=== PATIENT | male | born 1990 | race African-American/Black ===

== ENCOUNTER 2022-05-14 09:00 | Inpatient (IN) | payer OTHER, SELFPAY ==
[2022-05-14] VITALS (8 sets, daily range): BP systolic 114–126; BP diastolic 59–71; PULSE 65–78; RESP 16–18; TEMP 36.7–36.9; O2SAT 95–100; BMI 18.6
--- NOTE | ~2022-05-14 | XR_ITS ---
EXAMINATION: XR chest 1V portable DATE: 05/15/2022 05:52 INDICATION: Hyperlucency noted in the right lung and prior CT TECHNIQUE: frontal view of the chest was obtained. COMPARISON: CT abdomen and pelvis dated FINDINGS: Again seen is a localized region of increased lucency at the medial right lower lung zone with some c orresponding emphysematous changes on the prior CT. Lungs otherwise clear with no airspace opacities, pulmonary edema, pleural effusion or pneumothorax. The cardiomediastinal silhouette is normal. Visua lized bones and soft tissues are unremarkable. IMPRESSION: 1. Localized region of hyperlucency with emphysematous changes at the medial right lower lobe. Differ ential would include Swyer-Rahul syndrome related to chronic postinfectious obliterated of bronchioli tis, bronchial atresia or basilar predominant emphysema such as in the setting of alpha-1 antitrypsin deficiency. Reviewed, dictated and finalized at location A. IMPRESSION: 1. Localized region of hyperlucency with emphysematous changes at the medial ri ght lower lobe. Differential would include Swyer-Rahul syndrome related to brush painter kriss postinfectious obliterated of bronchiolitis, bronchial atresia or basilar p redominant emphysema such as in the setting of alpha-1 antitrypsin deficiency.
--- NOTE | ~2022-05-14 | CT_ITS ---
EXAMINATION: CT abdomen pelvis w con INDICATION: Nausea, vomiting, diarrhea TECHNIQUE: Computed tomographic images of the abdomen and pelvis were obtained after the administrati on of 100 cc of Omnipaque 300 intravenous contrast. The dose-length product (DLP) was 212.43 mGy-cm. Automated exposure control and iterative reconstruction technique were employed. COMPARISON: None available FINDINGS: There is hyperlucency in the medial aspect of the visualized right lower lobe. Stones are p resent in the nondistended gallbladder. Cysts of the liver measure up to 8 mm in the left hepatic lob e.. There is patchy perfusion of the spleen, likely related to history of sickle cell anemia. The byrnes creas and adrenal glands are normal. Cysts of the kidneys measure up to 10 mm on the left. No patholo gically enlarged abdominal or pelvic lymph nodes are identified. There is no free intraperitoneal gas or evidence of bowel obstruction. IMPRESSION: 1. Cholelithiasis without evidence of cholecystitis. 2. Patchy perfusion of the spleen, likely related to sickle cell anemia. Reviewed, dictated and finalized at location A.
[2022-05-14] MEDS: SODIUM CHLORIDE 0.9% IV 1,000 ML 999 ML IV CONT ×2 (09:47→11:49)
[2022-05-14] MEDS: ONDANSETRON INJ 4 MG/2 ML VIAL IV PUSH (09:49)
[2022-05-14 09:59] LABS: Basophils Percent Auto 0.5 % (0.2-1.2); Hematocrit 24.9 % (42.0-52.0); Immature Granulocyte Absolute 0.06 K/mm3 (0.00-0.031); Immature Granulocyte Percent A 0.7 % (0-0.5); Immature Platelet Fraction Pct 17.1 % (0.9-11.2); Lymphocytes Absolute Auto 2.55 K/mm3 (0.9-3.2); Lymphocytes Percent Auto 28.8 % (18.3-44.2); Mean Corpuscular HGB Conc 36.1 g/dl (32-36); Mean Corpuscular Hemoglobin 25.4 pg (26-34); Mean Corpuscular Volume 70.3 fl (80-100); Monocytes Absolute Auto 1.5 K/mm3 (0.1-0.6); Monocytes Percent Auto 16.6 % (2.6-8.5); Neutrophils Absolute Auto 4.7 K/mm3 (1.3-6.7); Neutrophils Percent Auto 53.4 % (45.5-73.1); Nucleated Red Blood Cells Absolute Auto 0.2 K/mm3 (0.0-0.012); Platelet Count Result 110 k/mm3 (150-375); Red Blood Count 3.54 M/mm3 (4.6-6.20); Red Cell Distribution Width 19.3 % (11.5-14.5); White Blood Count 8.8 K/mm3 (4.5-10.0)
--- NOTE | 2022-05-14 10:09 | ED.ABDPAIN ---
HPI - Abdominal Pain General Chief Complaint: Abdominal Pain <Aye Webb PA-C - Last Filed: 05/14/22 19:19> Stated Complaint: ABD <Aye Webb PA-C - Last Filed: 05/14/22 19:19> Time Seen by Provider: 05/14/22 09:02 <Aye Webb PA-C - Last Filed: 05/14/22 19:19> Source: patient <GRIFFIN Freitas Last Filed: 05/14/22 19:19> Mode of arrival: ambulatory <GRIFFIN Freitas Last Filed: 05/14/22 19:19> Limitations: no limitations <Aye Webb PA-C - Last Filed: 05/14/22 19:19> History of Present Illness HPI narrative: Patient is a 32-year-old male who presents ED with report of N/V/D. Patient reports having symptoms for the last 4 days. He reports symptoms began more with nausea and vomiting, but now he is mostly just having nausea with dry heaving. He has had several episodes of diarrhea per day. No blood in the stool or vomit. He reports having diffuse crampy abdominal pain with vomiting, but denies any pain currently. He has not tried anything for symptoms. He has been able to keep down some water, but has not ate much over the last 4 days. Denies any fever, chills, diaphoresis, urinary symptoms, chest pain, difficulty breathing, recent cough or cold symptoms. Patient has a Hx of sickle cell anemia. Does not currently take any medications for this. Denies symptoms feeling like pain crisis. Denies joint or extremity pain currently. Last crisis few months ago. Cardiovascular Or Nurse is Dr. Muñoz w/ [facility]. <GRIFFIN Freitas Last Filed: 05/14/22 19:19> Related Data Home Medications: Home Medications Medication Instructions Recorded Confirmed ketorolac 10 mg tablet 10 mg PO Q6H PRN Pain 05/14/22 05/14/22 oxycodone 5 mg tablet 5 mg PO Q6H PRN Pain 05/14/22 05/14/22 <Aye Webb PA-C - Last Filed: 05/14/22 19:19> Allergies/Adverse Reactions: Allergies Allergy/AdvReac Type Severity Reaction Status Date / Time hydromorphone [From Dilaudid] Allergy Unknown Hives Verified 05/15/22 12:05 carrots Allergy Unknown Swelling Uncoded 05/15/22 12:06 <Aye Webb PA-C - Last Filed: 05/14/22 19:19> Review of Systems Review of Systems: CONSTITUTIONAL: Denies fever, chills, or sweats. ENT: Denies rhinorrhea, congestion, sore throat. CARDIOVASCULAR: Denies chest pain. RESPIRATORY: Denies cough or dyspnea. GASTROINTESTINAL: Reports crampy abdominal pain, nausea, vomiting, dry heaving, and diarrhea. Denies hematemesis or rectal bleeding. GENITOURINARY: Denies dysuria or hematuria. MUSCULOSKELETAL: Denies back pain, joint pain, myalgias. NEUROLOGIC: Denies headache, numbness, tingling, or weakness. <Aye Webb PA-C - Last Filed: 05/14/22 19:19> All systems reviewed & are unremarkable except as noted in HPI and below <Aye Webb PA-C - Last Filed: 05/14/22 19:19> [facility] Past Medical History Medical History: Medical History (Updated 05/15/22 @ 07:21 by NALINI Rothman) Cardiac murmur Since childhood, benign per patient report. Sickle cell disease Patient has history of acute chest syndrome. <Aye Webb PA-C - Last Filed: 05/14/22 19:19> Surgical History Surgical History: Surgical History (Updated 05/14/22 @ 23:25 by Guerline Cisneros PA-C) No history of previous surgery <Aye Webb PA-C - Last Filed: 05/14/22 19:19> Family History Family History: Family History (Updated 05/14/22 @ 23:25 by Guerline Cisneros PA-C) Other Sickle cell trait <Aye Webb PA-C - Last Filed: 05/14/22 19:19> Social History Social History: Social History (Updated 05/14/22 @ 23:27 by Guerline Cisneros PA-C) Social History: Surrogate decision maker: Josephine Rosa, mother. Code status: Full code. Smoking status: Never smoker Alcohol intake: never Substance use: former Substance use type: does not use and marijuana Additional living arrangements comments: The patient lives with
[2022-05-14 10:16] LABS: Anisocytosis 1+ (NORMAL); Hypochromasia 2+ (NORMAL); Platelet Estimate Decreased (Adequate)
[2022-05-14 10:17] LABS: Ovalocytes 2+ (NORMAL); Sickle Cells 2+ (NORMAL); Target Cells 2+ (NORMAL); Tear Drop Cells 1+ (NORMAL)
[2022-05-14 10:18] LABS: Acanthocytes 1+ (NORMAL); Schistocytes 1+ (NORMAL)
[2022-05-14 10:22] LABS: Albumin Level 4.2 g/dL (3.5-5.1); Alkaline Phosphatase 64 U/L (38-126); Anion Gap 7 mmol/L (8-16); Bilirubin,Total 3.3 mg/dL (0.2-1.3); Blood Urea Nitrogen 16 mg/dL (9-20); Calcium 8.2 mg/dL (8.4-10.2); Carbon Dioxide 23 mmol/L (22-30); Chloride 105 mmol/L (98-107); Estimated CRCL calculation 88 ml/min; Estimated Glomerular Filt Rate > 60; Glucose 109 mg/dL (65-110); Lipase 187 U/L (23-300); Potassium 3.6 mmol/L (3.4-5.0); Sodium 135 mmol/L (137-145)
[2022-05-14 10:38] LABS: Alanine Aminotransferase 2238 U/L (6-50); Aspartate Amino Transferase 3407 U/L (17-59)
[2022-05-14 10:47] LABS: Appearance Urine Clear (Clear); Bilirubin Urine 1+ (Negative); Blood Urine 2+ (Negative); Glucose Urine UA Negative (Negative); Ketones Urine Negative (Negative); Leukocyte Esterase Ur Negative LEU/UL (Negative); Nitrate Urine Negative (Negative); Protein Urine 2+ mg/dL (Negative); Specific Grav Ur 1.015 (1.001-1.035)
[2022-05-14 10:52] LABS: Bacteria Urine Trace /hpf; RBC Urine 0-2 /hpf (0-2); WBC Urine 0-3 /hpf
[2022-05-14 11:05] LABS: Add Urine Microscopic? YES; Color Urine Dark Yellow (Yellow)
[2022-05-14 11:09] LABS: Immature Reticulocyte Fraction 10.6 % (3.0-15.9); Reticulocyte Hemoglobin Conten 23.7 pg (28.2-35.7); Reticulocytes Absolute 0.05 B/L (32.2-175.7)
[2022-05-14 12:07] LABS: Hepatitis B Surface Antigen Negative (Negative)
[2022-05-14 12:09] LABS: Lactate Dehydrogenase > 10000 U/L (313-618)
[2022-05-14 12:12] LABS: HAV RESULT Negative (Negative); Hepatitis B Core IgM Result Negative (Negative)
[2022-05-14 12:24] LABS: Hepatitis C Virus Antibody Negative (Negative)
[2022-05-14] MEDS: METOCLOPRAMIDE HCL INJ 10 MG/2 ML VIAL IV PUSH (12:44)
[2022-05-14 13:43] LABS: Acetaminophen < 10 ug/mL (10-30)
[2022-05-14 14:29] LABS: INR 1.3; Prothrombin Time 15.5 Seconds (11.1-14.7)
[2022-05-14 14:30] LABS: Partial Thromboplastin Time 42.5 SECONDS (22.3-36.8)
--- NOTE | 2022-05-14 14:37 | ECG_ITS ---
Measurements Intervals [place] Rate: 71 P: 71 WI: 161 QRS: 60 QRSD: 87 T: 0 QT: 400 QTc: 436 Interpretive Statements SINUS RHYTHM VOLTAGE CRITERIA FOR LVH WITH SECONDARY REPOLARIZATION ABNORMALITY ABNORMAL ECG NO PREVIOUS ECG AVAILABLE FOR COMPARISON Electronically Signed On 05-15-2022 7:15:15 CDT by Charles Clark M.D.
[2022-05-14 15:29] LABS: Troponin I 0.033 ng/mL (0.000-0.034)
[2022-05-14] MEDS: SODIUM CHLORIDE 0.9% IV 1,000 ML 150 ML IV CONT ×2 (16:18→23:10)
--- NOTE | 2022-05-14 17:05 | ADMGEN ---
This patient, Shawn Bower, was admitted to Medical Room 244-. Patient/family oriented to hospital policies and general routines including ID bracelet, bed and alarms, visiting hours, pain management, procedures, bathroom and other care routines, personal items, smoking policy, room service/diet, and visiting hours. Information on how to activate the Rapid Response Team has been discussed. Patient/Family are encouraged to report perceived risks to care and to ask questions if they do not understand what they are told or what they should do.
--- NOTE | 2022-05-14 17:30 | PM.IMHP ---
H&P: HPI History of Present Illness Date/Time: 05/14/22 17:30 Chief Complaint: Nausea, vomiting, diarrhea. Narrative: This is a very pleasant 32-year-old male with sickle cell disease who presented to the emergency department for evaluation of nausea, vomiting, and diarrhea. He has not felt well for approximately 4 days with nausea, vomiting, dry heaves, and brown-yellow watery diarrhea. He also reports mild abdominal discomfort which he believes is muscle aches from vomiting and dry heaving. Several days prior to the onset of these symptoms he had a dry cough and hiccups although those symptoms have resolved. With further questioning his mother was in [place] last week and when she returned home she had cold symptoms to include sniffles and a mild sore throat. Her symptoms were mild and they to have resolved and she was never tested for influenza or COVID. Vital signs were stable on arrival to the ER. Pertinent labs include a stable hemoglobin and hematocrit, normal percent retic, mild elevation in bilirubin, and markedly elevated AST, ALT, and LDH. CT of the abdomen and pelvis showed cholelithiasis without evidence of cholecystitis as well as patchy perfusion of the spleen, likely related to sickle cell anemia. The physician visual merchandising assistant care for the patient department spoke with the physician on-call (Dr. 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 Dr. Sky (gastroenterology) was contacted and he agrees to see the patient in consultation. At the time my evaluation he is feeling a lot better after receiving IV fluids and antiemetics in the ER. He has no significant abdominal discomfort at this time and he has had no episodes of vomiting or dry heaves since admission. He has had 1 loose stool, however. He denies fever, chills, sweats, sinus congestion, sore throat, cough, chest pain, shortness breast, rash, pruritus, hematemesis, melena hematochezia, dysuria, hematuria, and joint pain. He denies recent travel, antibiotic use, and acetaminophen use. He has not had any recent tattoos, needle exposures, or hepatitis exposure to his knowledge. Review of Systems Review of Systems: Twelve systems were reviewed and are negative except for as per HPI. [facility] Past Medical History Medical History (Updated 05/14/22 @ 23:40 by Guerline Cisneros PA-C) Cardiac murmur Since childhood, benign per patient report. Sickle cell disease Patient has history of acute chest syndrome. Surgical History Surgical History (Updated 05/14/22 @ 23:25 by Guerline Cisneros PA-C) No history of previous surgery Family History Family History (Updated 05/14/22 @ 23:25 by Guerline Cisneros PA-C) Other Sickle cell trait Social History Social History (Updated 05/14/22 @ 23:27 by Guerline Cisneros PA-C) Social History: Surrogate decision maker: Josephine Rosa, mother. Code status: Full code. Smoking status: Never smoker Alcohol intake: never Substance use: former Substance use type: does not use and marijuana Additional living arrangements comments: The patient lives with his mother. Spiritual care concerns: No Meds Home Medications and Allergies Home Medications Medication Instructions Recorded Confirmed Type ketorolac 10 mg tablet 10 mg PO Q6H PRN Pain 05/14/22 05/14/22 History oxycodone 5 mg tablet 5 mg PO Q6H PRN Pain 05/14/22 05/14/22 History Allergies Allergy/AdvReac Type Severity Reaction Status Date / Time hydromorphone [From Dilaudid] Allergy Hives Verified 05/14/22 18:47 carrots Allergy Swelling Uncoded 05/14/22 17:26 Vital Signs Vital Signs - 24 hr 05/14/22 09:06 05/14/22 10:02 05/14/22 12:49 Temperature 98.1 F Pulse Rate 74 78 76 Respiratory Rate 18 18 18 Blood Pressure 126/71 114/67 119/60 Pulse Oximetry 100 95 100 Oxygen Delivery Room Air Exam Narrative: General: Well-developed, thin male
[2022-05-15] VITALS: PULSE 75
[2022-05-15 00:24] LABS: Magnesium 2.3 mg/dL (1.6-2.3); Phosphorus 2.2 mg/dL (2.5-4.5); Uric Acid 3.7 mg/dL (3.5-8.5)
[2022-05-15 00:31] LABS: Albumin Level 3.4 g/dL (3.5-5.1); Alkaline Phosphatase 56 U/L (38-126); Anion Gap 5 mmol/L (8-16); Bilirubin,Total 2.8 mg/dL (0.2-1.3); Blood Urea Nitrogen 9 mg/dL (9-20); CRP 2.2 mg/dL (<1.0); Calcium 7.4 mg/dL (8.4-10.2); Carbon Dioxide 22 mmol/L (22-30); Chloride 110 mmol/L (98-107); Creatine Kinase 469 U/L (55-170); Estimated CRCL calculation 115 ml/min; Estimated Glomerular Filt Rate > 60; Glucose 97 mg/dL (65-110); Potassium 3.3 mmol/L (3.4-5.0); Sodium 137 mmol/L (137-145)
[2022-05-15 00:55] LABS: Alanine Aminotransferase 1622 U/L (6-50); Aspartate Amino Transferase 2001 U/L (17-59); Lactate Dehydrogenase 5220 U/L (313-618)
[2022-05-15 01:10] LABS: Monoscreen Negative (Negative); Negative Monotest Control Negative (Negative); Positive Monotest Control Positive (Positive)
[2022-05-15 01:27] LABS: SARS-CoV-2 RNA PCR Positive
[2022-05-15 01:40] LABS: HAV RESULT Negative (Negative)
[2022-05-15] MEDS: DEXTROSE 5%/0.45% SOD CHL 1,000 ML 75 ML IV CONT (03:12)
[2022-05-15 04:00] VITALS: PULSE 78
[2022-05-15 05:08] LABS: Basophils Absolute Auto 0.1 K/mm3 (0.0-0.1); Basophils Percent Auto 0.8 % (0.2-1.2); Eosinophils Percent Auto 0.4 % (0-4.4); Hematocrit 21.9 % (42.0-52.0); Immature Granulocyte Absolute 0.08 K/mm3 (0.00-0.031); Immature Platelet Fraction Pct 12.2 % (0.9-11.2); Immature Reticulocyte Fraction 7.8 % (3.0-15.9); Lymphocytes Percent Auto 45.3 % (18.3-44.2); Mean Corpuscular HGB Conc 36.5 g/dl (32-36); Mean Corpuscular Hemoglobin 25.5 pg (26-34); Mean Corpuscular Volume 69.7 fl (80-100); Monocytes Absolute Auto 1.1 K/mm3 (0.1-0.6); Monocytes Percent Auto 12.6 % (2.6-8.5); Neutrophils Absolute Auto 3.3 K/mm3 (1.3-6.7); Neutrophils Percent Auto 39.9 % (45.5-73.1); Nucleated Red Blood Cells Absolute Auto 0.1 K/mm3 (0.0-0.012); Nucleated Red Blood Cells Perc 0.6 % (0.0-0.2); Platelet Count Result 128 k/mm3 (150-375); Red Blood Count 3.14 M/mm3 (4.6-6.20); Red Cell Distribution Width 20.3 % (11.5-14.5); Reticulocyte Hemoglobin Conten 25.8 pg (28.2-35.7); Reticulocyte Percent 2.57 % (0.7-4.3); Reticulocytes Absolute 0.08 B/L (32.2-175.7); White Blood Count 8.4 K/mm3 (4.5-10.0)
[2022-05-15 05:16] LABS: Ammonia 23 umol/L (9-30)
[2022-05-15 05:17] LABS: Free T4 Free Thyroxine Reflex 0.84 ng/dL (0.78-2.19)
[2022-05-15 05:28] LABS: Albumin Level 3.4 g/dL (3.5-5.1); Alkaline Phosphatase 47 U/L (38-126); Anion Gap 4 mmol/L (8-16); Bilirubin,Total 2.7 mg/dL (0.2-1.3); Blood Urea Nitrogen 7 mg/dL (9-20); Calcium 7.5 mg/dL (8.4-10.2); Carbon Dioxide 22 mmol/L (22-30); Chloride 110 mmol/L (98-107); Creatine Kinase 484 U/L (55-170); Estimated CRCL calculation 115 ml/min; Estimated Glomerular Filt Rate > 60; Glucose 98 mg/dL (65-110); Magnesium 2.3 mg/dL (1.6-2.3); Phosphorus 2.4 mg/dL (2.5-4.5); Potassium 3.7 mmol/L (3.4-5.0); Sodium 136 mmol/L (137-145)
[2022-05-15 05:29] LABS: Anisocytosis 1+ (NORMAL); Macrocytosis 1+ (NORMAL); Platelet Estimate Adequate (Adequate); Poikilocytosis 1+ (NORMAL); Sickle Cells 1+ (NORMAL)
[2022-05-15 05:30] LABS: Hypochromasia 1+ (NORMAL); Target Cells 1+ (NORMAL)
[2022-05-15 05:36] VITALS: BP 114/55; PULSE 75; RESP 18; TEMP 36.4; O2SAT 99
[2022-05-15 06:24] LABS: Alanine Aminotransferase 1527 U/L (6-50); Aspartate Amino Transferase 1699 U/L (17-59); Lactate Dehydrogenase 4403 U/L (313-618)
[2022-05-15 08:00] VITALS: PULSE 67
[2022-05-15 08:40] LABS: Ferritin > 2000.00 ng/mL (17.9-464)
--- NOTE | 2022-05-15 10:15 | PM.IMPN ---
Progress Note: A&P Assessment and Plan (1) COVID-19: Code(s): U07.1 - COVID-19 Status: Acute Assessment and Plan: Test positive for COVID Was around his mother that was ill after vacation Could be contributing to his liver failure Trend labs Supportive care (2) Transaminitis: Code(s): R74.01 - Elevation of levels of liver transaminase levels Status: Acute Assessment and Plan: Liver enzymes AST/ALT 1699/1527 LDH 4403 Alk phos 47 Trend labs Hep panel negative Could be secondary to Covid infection GI on board Consider MRCP (3) Sickle cell disease: Code(s): D57.1 - Sickle-cell disease without crisis Status: Acute Assessment and Plan: H/H stable at 8.0/21.9 Retic counts: absolute 0.08, % Retic 2.57, Immature fraction 7.8, Retic Hgb content 25.8 Trend H/H Get anemia labs in the am Transfuse as indicated Supplement as indicated (4) Nausea, vomiting, and diarrhea: Code(s): R11.2 - Nausea with vomiting, unspecified; R19.7 - Diarrhea, unspecified Status: Acute Assessment and Plan: Initial presentation over the last 4 days Bilirubin and liver enzymes are elevated Abd/Pel Ct shows cholelithiasis without evidence of cholecystitis Tested positive for COVID Hx of sickle cell anemia GI consulted Consider MRCP Zofran ordered (5) Rhabdomyolysis: Code(s): M62.82 - Rhabdomyolysis Status: Acute Assessment and Plan: CK elevated 484 IV fluids Trend CK Appears to be going up slightly from admission Time Spent With Patient Time with patient: Greater than 35 minutes Subjective Date/time seen: 05/15/22 1015 Interval history: 05/15/22 1015 Patient is anxious and ready to go home. Explained to patient that is not time do the patient has elevated AST ALT. Patient's main concern is that he is hungry and wants to eat something. Patient also has an elevated and is rising CK. He denies any chest pain, shortness of breath, nausea, vomiting, diarrhea constipation or fatigue. Patient did state that he still have a little bit abdominal pain but it does seem controlled at this time. Urine does look your dark at this time. I did reiterate to this patient again that he is not safe for discharge as his liver enzymes are elevated and his CK is also elevated. 05/14/22? 17:30 This is a very pleasant 32-year-old male with sickle cell disease who presented to the emergency department for evaluation of nausea, vomiting, and diarrhea. He has not felt well for approximately 4 days with nausea, vomiting, dry heaves, and brown-yellow watery diarrhea. He also reports mild abdominal discomfort which he believes is muscle aches from vomiting and dry heaving. Several days prior to the onset of these symptoms he had a dry cough and hiccups although those symptoms have resolved. With further questioning his mother was in [place] last week and when she returned home she had cold symptoms to include sniffles and a mild sore throat. Her symptoms were mild and they to have resolved and she was never tested for influenza or COVID. Vital signs were stable on arrival to the ER. Pertinent labs include a stable hemoglobin and hematocrit, normal percent retic, mild elevation in bilirubin, and markedly elevated AST, ALT, and LDH. CT of the abdomen and pelvis showed cholelithiasis without evidence of cholecystitis as well as patchy perfusion of the spleen, likely related to sickle cell anemia. The physician ophthalmic medical assistant care for the patient department spoke with the physician on-call (Dr. 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 Dr. Sky (gastroenterology) was contacted and he agrees to see the patient in consultation. At the time my evaluation he is feeling a lot better after receiving IV fluids and antieme
--- NOTE | 2022-05-15 10:15 | P.PNIM_ITS ---
Progress Note: A&P Assessment and Plan (1) COVID-19: Code(s): U07.1 - COVID-19 Status: Acute Assessment and Plan: * Test positive for COVID * Was around his mother that was ill after vacation * Could be contributing to his liver failure * Trend labs * Supportive care (2) Transaminitis: Code(s): R74.01 - Elevation of levels of liver transaminase levels Status: Acute Assessment and Plan: * Liver enzymes AST/ALT 1699/1527 * LDH 4403 * Alk phos 47 * Trend labs * Hep panel negative * Could be secondary to Covid infection * GI on board * Consider MRCP (3) Sickle cell disease: Code(s): D57.1 - Sickle-cell disease without crisis Status: Acute Assessment and Plan: * H/H stable at 8.0/21.9 * Retic counts: absolute 0.08, % Retic 2.57, Immature fraction 7.8, Retic Hgb content 25.8 * Trend H/H * Get anemia labs in the am * Transfuse as indicated * Supplement as indicated (4) Nausea, vomiting, and diarrhea: Code(s): R11.2 - Nausea with vomiting, unspecified; R19.7 - Diarrhea, unspecified Status: Acute Assessment and Plan: * Initial presentation over the last 4 days * Bilirubin and liver enzymes are elevated * Abd/Pel Ct shows cholelithiasis without evidence of cholecystitis * Tested positive for COVID * Hx of sickle cell anemia * GI consulted * Consider MRCP * Zofran ordered (5) Rhabdomyolysis: Code(s): M62.82 - Rhabdomyolysis Status: Acute Assessment and Plan: * CK elevated 484 * IV fluids * Trend CK * Appears to be going up slightly from admission Time Spent With Patient Time with patient: Greater than 35 minutes Subjective Date/time seen: 05/15/22 1015 Interval history: 05/15/22 1015 Patient is anxious and ready to go home. Explained to patient that is not time do the patient has elevated AST ALT. Patient's main concern is that he is hungry and wants to eat something. Patient also has an elevated and is rising CK. He denies any chest pain, shortness of breath, nausea, vomiting, diarrhea constipation or fatigue. Patient did state that he still have a little bit abdominal pain but it does seem controlled at this time. Urine does look your dark at this time. I did reiterate to this patient again that he is not safe for discharge as his liver enzymes are elevated and his CK is also elevated. 05/14/22? 17:30 This is a very pleasant 32-year-old male with sickle cell disease who presented to the emergency department for evaluation of nausea, vomiting, and diarrhea. He has not felt well for approximately 4 days with nausea, vomiting, dry heaves, and brown-yellow watery diarrhea. He also reports mild abdominal discomfort which he believes is muscle aches from vomiting and dry heaving. Several days prior to the onset of these symptoms he had a dry cough and hiccups although those symptoms have resolved. With further questioning his mother was in [place] last week and when she returned home she had cold symptoms to include sniffles and a mild sore throat. Her symptoms were mild and they to have resolved and she was never tested for influenza or COVID. Vital signs were stable on arrival to the ER. Pertinent labs include a stable hemoglobin and hematocrit, normal percent retic, mild elevation in bilirubin, and markedly elevated AST, ALT, and LDH. CT of the abdomen and pelvis showed cholelithiasis without evidence of cholecystiti
[2022-05-15 10:35] VITALS: BMI 18.6
--- NOTE | 2022-05-15 14:29 | PCNSR ---
On 05/15/22, the student, Lety Wells, provided care and completed [facility] documentation on this patient. I have reviewed the student's documentation and agree with the findings.
--- NOTE | 2022-05-15 14:49 | PM.DS ---
DS: Admitting Diagnosis Discharge Date 05/15/22 1500 Admitting Diagnosis Rhobdomylitis, acute liver failure, COVID infection DS: Discharge Diagnosis Discharge Diagnosis (1) COVID-19: Code(s): U07.1 - COVID-19 Status: Acute Assessment and Plan: Test positive for COVID Was around his mother that was ill after vacation Could be contributing to his liver failure Trend labs Supportive care (2) Transaminitis: Code(s): R74.01 - Elevation of levels of liver transaminase levels Status: Acute Assessment and Plan: Liver enzymes AST/ALT 1699/1527 LDH 4403 Alk phos 47 Trend labs Hep panel negative Could be secondary to Covid infection GI on board Consider MRCP (3) Sickle cell disease: Code(s): D57.1 - Sickle-cell disease without crisis Status: Acute Assessment and Plan: H/H stable at 8.0/21.9 Retic counts: absolute 0.08, % Retic 2.57, Immature fraction 7.8, Retic Hgb content 25.8 Trend H/H Get anemia labs in the am Transfuse as indicated Supplement as indicated (4) Nausea, vomiting, and diarrhea: Code(s): R11.2 - Nausea with vomiting, unspecified; R19.7 - Diarrhea, unspecified Status: Acute Assessment and Plan: Initial presentation over the last 4 days Bilirubin and liver enzymes are elevated Abd/Pel Ct shows cholelithiasis without evidence of cholecystitis Tested positive for COVID Hx of sickle cell anemia GI consulted Consider MRCP Zofran ordered (5) Rhabdomyolysis: Code(s): M62.82 - Rhabdomyolysis Status: Acute Assessment and Plan: CK elevated 484 IV fluids Trend CK Appears to be going up slightly from admission DS: Summary Hospital Course Hospital Course: Patient is a 32-year-old male with a past medical history of sickle cell disease and cardiac murmur who presented to the ED with complaints nausea, vomiting, diarrhea for 4 days. Upon arrival patient was was noted to be in rhabdomyolysis with elevated CK and acute liver failure with AST and ALT greater than 2000. IV fluids were started. GI has been consulted. Patient was also stating that he has been very weak and tired and that his abdomen heard. Patient's diarrhea got better with 1 episode throughout the night. Patient very and patient decided to leave AMA. Patient was told multiple times this was probably not a good idea due to the rhabdomyolysis and the acute renal failure. Patient insisted on leaving his patient was hungry wanted to eat something. Risk and benefits were given to patient prior to leaving. Patient verbalized understanding and left against medical advice. Status at Discharge Functional status at discharge: independent ambulation Overall status at discharge: patient is progressing back to baseline Time Spent with Patient Time attestation: Total time spent providing and/or coordinating discharge services: 42 minutes Time spent: Greater than 30 minutes Specific discharge activities: Diagnostic testing, chart review, developing a treatment plan, education, care coordination documentation, physical exam, result review Exam Const: General: cooperative, healthy appearing, no acute distress, well developed, alert and awake Nutritional Appearance: well nourished Orientation/consciousness: patient oriented x3 Limitations: no limitations HENMT: Head: normal to inspection Ears: hearing grossly normal bilaterally General nose exam: Normal external nose present Mouth: Yes Normal oral and palatal mucosa present, Yes lip normal and Yes tongue normal Teeth and gingiva: abnormal tooth and associated gingiva and poor dentition Eyes: General: appearance normal, both eyes and all related structures Neck: Neck: normal visual inspection, full ROM, trachea midline and supple Chest: Chest palpation & inspection: normal inspection of the chest Resp: Effort & Inspection:
--- NOTE | 2022-05-15 14:49 | P.DS_ITS ---
DS: Admitting Diagnosis Discharge Date 05/15/22 1500 Admitting Diagnosis Rhobdomylitis, acute liver failure, COVID infection DS: Discharge Diagnosis Discharge Diagnosis (1) COVID-19: Code(s): U07.1 - COVID-19 Status: Acute Assessment and Plan: * Test positive for COVID * Was around his mother that was ill after vacation * Could be contributing to his liver failure * Trend labs * Supportive care (2) Transaminitis: Code(s): R74.01 - Elevation of levels of liver transaminase levels Status: Acute Assessment and Plan: * Liver enzymes AST/ALT 1699/1527 * LDH 4403 * Alk phos 47 * Trend labs * Hep panel negative * Could be secondary to Covid infection * GI on board * Consider MRCP (3) Sickle cell disease: Code(s): D57.1 - Sickle-cell disease without crisis Status: Acute Assessment and Plan: * H/H stable at 8.0/21.9 * Retic counts: absolute 0.08, % Retic 2.57, Immature fraction 7.8, Retic Hgb content 25.8 * Trend H/H * Get anemia labs in the am * Transfuse as indicated * Supplement as indicated (4) Nausea, vomiting, and diarrhea: Code(s): R11.2 - Nausea with vomiting, unspecified; R19.7 - Diarrhea, unspecified Status: Acute Assessment and Plan: * Initial presentation over the last 4 days * Bilirubin and liver enzymes are elevated * Abd/Pel Ct shows cholelithiasis without evidence of cholecystitis * Tested positive for COVID * Hx of sickle cell anemia * GI consulted * Consider MRCP * Zofran ordered (5) Rhabdomyolysis: Code(s): M62.82 - Rhabdomyolysis Status: Acute Assessment and Plan: * CK elevated 484 * IV fluids * Trend CK * Appears to be going up slightly from admission DS: Summary Hospital Course Hospital Course: Patient is a 32-year-old male with a past medical history of sickle cell disease and cardiac murmur who presented to the ED with complaints nausea, vomiting, diarrhea for 4 days. Upon arrival patient was was noted to be in rhabdomyolysis with elevated CK and acute liver failure with AST and ALT greater than 2000. IV fluids were started. GI has been consulted. Patient was also stating that he has been very weak and tired and that his abdomen heard. Patient's diarrhea got better with 1 episode throughout the night. Patient very and patient decided to leave AMA. Patient was told multiple times this was probably not a good idea due to the rhabdomyolysis and the acute renal failure. Patient insisted on leaving his patient was hungry wanted to eat something. Risk and benefits were given to patient prior to leaving. Patient verbalized understanding and left against medical advice. Status at Discharge Functional status at discharge: independent ambulation Overall status at discharge: patient is progressing back to baseline Time Spent with Patient Time attestation: Total time spent providing and/or coordinating discharge services: 42 minutes Time spent: Greater than 30 minutes Specific discharge activities: Diagnostic testing, chart review, developing a treatment plan, education, care coordination documentation, physical exam, result review Exam Const: General: cooperative, healthy appearing, no acute distress, well developed, alert and awake Nutritional Appearance: well nourished Orientation/consciousness: patient oriented x3 Limitations: no limitations
[2022-05-15 15:00] VITALS: BP 99/56; PULSE 68; RESP 14; TEMP 36.6; O2SAT 99
[2022-05-18 22:13] LABS: Haptoglobin <8 mg/dL (43-212)
== END 2022-05-15 16:34 | disposition left against medical advice (07) | DRG 279 ==
LOC: ANHED 15:19 → ANH2MED 16:04
PROVIDERS: Internal Medicine; Physician Assistant; Admitting Provider Family Medicine; Emergency Provider Emergency Medicine; Visit Provider Nurse Practitioner
DX: K72.90 Hepatic failure, unspecified without coma (principal); U07.1 COVID-19; D57.1 Sickle-cell disease without crisis; M62.82 Rhabdomyolysis; R11.2 Nausea with vomiting, unspecified; R19.7 Diarrhea, unspecified
CPT/HCPCS: 36415; 71045; 74177; 80053; 80074; 80307; 81001; 82140; 82248; 82550; 82553; 82728; 83010; 83605; 83615; 83690; 83735; 84100; 84439; 84443; 84480; 84484; 84550; 85025; 85046; 85055; 85610; 85730; 86140; 86308; 86709; 86790; 86880; 93005; 96360; 96361; 96374; 96375; 99285; C9803; G0378; G0379; J2405; J2765; J7030; Q9967; U0003; U0005